=== PATIENT | male | born 1930 | race Caucasian/White ===

== ENCOUNTER → 2016-06-27 | Outpatient (CLI) | payer OTHER ==
[~2016-06-27] MED LIST: ACET-1256 PO; ARC10 PO; ASCA500 PO; ATOR-54 PO; CALC500C70 PO; CLBCR15 EXT; CLOP1TAB15 PO; COL-RITE PO; CZR50 PO; FLUO40CA8 PO; FLV400 PO; HMLI SC; INSDGI SC; LORA0.5T12 PO; MOVE FREE PO; MRLP17 PO; MULT-506 PO; OMEG10007 PO; SERT50TA PO
--- NOTE | 2016-06-27 15:19 | DIAGNOSTIC IMAGING REPORT ---
CHEST 2 VIEWS ROUTINE CLINICAL HISTORY: Z00.00 Health [id number] Obstructive sleep apnea dyspnea COMPARISON STUDY: 06/11/2015 FINDINGS: The bones soft tissues and hemidiaphragms are normal. The cardiomediastinal silhouette is normal. The lungs are clear. The pulmonary vasculature is normal. 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 Lungs otherwise appear clear. IMPRESSION: Chronic and postoperative change. No acute process. Electronically signed by: Thuan Wesley M.D. 06/27/2016 3:18 PM Dictated Date/Time: 06/27/2016 3:17 PM
== END | disposition home or self-care (01) ==
LOC: C.RAD1850 14:46
PROVIDERS: ATTEND Internal Medicine Pulmonary Disease
DX: Z00.00 Encounter for general adult medical examination without abnormal findings (principal); G47.33 Obstructive sleep apnea (adult) (pediatric)